=== PATIENT | female | born 1975 | race Caucasian/White ===

== ENCOUNTER 2024-02-01 00:31 | Day surgery (SDC) | payer OTHER, SELFPAY ==
[2024-01-23 13:48] VITALS: BMI 24.2
--- NOTE | 2024-01-23 14:03 | PC.NURSE ---
Report to the Outpatient Waiting Room, entrance under the green pavilion located off [facility], at time _1000AM on date _02/01/24 . Planned Procedure Time: _1200_NOON .? Time changes happen often and if your time is changed the preop area will call you the afternoon before. - You and your visitor will be asked to self-screen and do not enter if you have any COVID symptoms. Please call surgeon if you need to reschedule. - A mask is optional within the hospital at this time. Patients may have clear liquids (water, carbonated beverages, clear teas, apple juice) until 3 hours prior to surgery with a maximum of 20 ounces. - No food from midnight until time of surgery and no smoking. Take only the following medications with a SIP of water on the morning of surgery: ____VALIUM IF NEEDED, SERTRALINE DO NOT STOP ANY OF YOUR OTHER PRESCRIPTION MEDICATIONS PRIOR TO SURGERY EXCEPT THE FOLLOWING Medications to discontinue per physician NONE Date to take last dose NONE Please no make-up, nail thai, hairspray, perfume, deodorant, or body powder the day of surgery.? No jewelry (including any body piercings) or valuables the day of surgery, leave them at home.? Please take a shower or bath the night before, or the morning of, surgery with an antibacterial soap.? Wear comfortable, loose fitting clothing.? - Jewelry must be removed prior to entering the operating room.? Rings and piercings that are not removed may be cut off. - The hospital will not accept responsibility for valuables.? - Please leave all valuables, including medications, at home the day of surgery. If you are going home after surgery, a licensed class a regional drivers must drive you home.? - NO public transportation without another adult if you receive anesthesia. - We recommend that an adult stay with you for 24 hours following discharge. - We also recommend that you do not drive, make important decision, drink alcoholic beverages, or take any drugs that were not prescribed by your health care provider for at least 24 hours after your discharge time. Follow any additional instructions given to you from your surgeon. Telephone instructions given to _ADELITAH and asked if any additional questions and then verbalized understanding. Patient advised to call surgeon office or pre surgery nurse liaison [phone] if any additional questions.
--- NOTE | 2024-01-27 17:34 | P.HP_ITS ---
H&P: HPI History of Present Illness Date/Time: 01/27/24 17:34 Chief Complaint: TERESA Narrative: desires a sling for TERESA Review of Systems Review of Systems: All systems reviewed & are unremarkable except as noted in HPI and below [facility] Past Medical History Medical History Abnormal Pap smear of cervix Hx HANNA 1 and LGSIL 1995; 06/16/2011 colpo chronic cervicitis; 01/12/12 ascus neg hpv 06/20/2016 ascus-hpv Anxiety Miscarriage 02/05/02 Pain of left breast Screening mammogram, encounter for Surgical History Surgical History History of colposcopy with cervical biopsy 1995 colpo/bx--cyrosurgery 06/16/11 chronic cervicitis, squamous metaplasia colpo only/no bx History of dilation and curettage 05/25/99 hscope d&c/dx lscope--electrocautery of endometriotic implants--endometriosis-benign 02/08/21 hscope d&c/polypectomy--endometrial polyp w/hemorrhagic infarction 02/05/02 suction d&c--incomplete AB History of laparoscopy 05/25/99 hscope d&c/dx lscope--electrocautery of endometriotic implants--endometriosis-benign 07/01/03 lscope lysis endometriosis History of tonsillectomy Family History Family History Mother Hypertension Heart disease Father Lung cancer Social History Social History Smoking status: Never smoker Second hand tobacco smoke exposure: No Alcohol intake: current Drinks per week: 3 Substance use: never Substance use type: does not use Do You Feel Safe in your Home?: Yes Lack of Transportation: No Lack of Food: Never True Current Housing: I Have Housing Concerned About Future Housing: No Difficulty Paying Gas/Electric Bills: No Difficulty Paying for Meds: No Currently Unemployed: No Education: High School Diploma/GED Difficulty w/ Childcare or Family Care: No Living arrangements: with family Additional living arrangements comments: Occupation/Education: occupation Additional occupation/education comments: real estate Gender identity (if verbalized by the patient): Female Sexual Orientation (if Verbalized by the Patient): Straight or Heterosexual Spiritual care concerns: No Meds Home Medications and Allergies Home Medications Medication Instructions Recorded Confirmed Type loratadine 10 mg tablet 10 mg PO DAILY 10/20/21 01/23/24 History norethindrone 1 mg-ethinyl 1 tablet PO DAILY #140 tabs 05/15/23 01/23/24 Rx estradiol 10 mcg (24)-iron 10 mcg(2) tablet (Lo Loestrin Fe) sertraline 50 mg tablet 50 mg PO DAILY #90 tabs 05/15/23 01/23/24 Rx diazepam 5 mg tablet 5 mg PO BID PRN Anxiety 01/23/24 01/23/24 History Allergies Allergy/AdvReac Type Severity Reaction Status Date / Time Penicillins Allergy Mild Unknown Verified 05/15/23 10:42 Exam Narrative: + urethral mobility Assessment and Plan Assessment and plan (1) Stress incontinence: Code(s): N39.3 - Stress incontinence (female) (male) Status: Acute Assessment and Plan: urethral sling
--- NOTE | 2024-01-31 15:15 | WPDANESEPPF ---
Anes - Initial Pre Proc Eval Procedure: Operation Date: 02/01/24 11:15 Proposed Procedures p Urethral Sling - Ovidio Early MD Date/Time: 01/31/24 15:15 Surgeon: Ovidio Early MD Pre Op Diagnosis: stress incont Patient Data Age: 48 Gender: F Height: 1.73 m Weight: 72.2 kg Allergies Allergy/AdvReac Type Severity Reaction Status Date / Time Penicillins Allergy Mild Unknown Verified 05/15/23 10:42 Home Medications Medication Instructions Recorded Confirmed Type loratadine 10 mg tablet 10 mg PO DAILY 10/20/21 01/23/24 History norethindrone 1 mg-ethinyl 1 tablet PO DAILY #140 tabs 05/15/23 01/23/24 Rx estradiol 10 mcg (24)-iron 10 mcg(2) tablet (Lo Loestrin Fe) sertraline 50 mg tablet 50 mg PO DAILY #90 tabs 05/15/23 01/23/24 Rx diazepam 5 mg tablet 5 mg PO BID PRN Anxiety 01/23/24 01/23/24 History hydrocodone 5 mg-acetaminophen 325 1 tablet PO Q6H PRN pain #20 tabs 02/01/24 Rx mg tablet Patient hx anesthesia problems: none Family hx anesthesia problems: none Results Review: All pre-operative results and documents have been reviewed as part of the pre-operative evaluation. [facility] Past Medical History Medical History (Updated 01/31/24 @ 15:16 by Fredrick Foley DO) Abnormal Pap smear of cervix Hx HANNA 1 and LGSIL 1995; 06/16/2011 colpo chronic cervicitis; 01/12/12 ascus neg hpv 06/20/2016 ascus-hpv Anxiety Endometriosis Miscarriage 02/05/02 Pain of left breast Screening mammogram, encounter for Surgical History Surgical History History of colposcopy with cervical biopsy 1995 colpo/bx--cyrosurgery 06/16/11 chronic cervicitis, squamous metaplasia colpo only/no bx History of dilation and curettage 05/25/99 hscope d&c/dx lscope--electrocautery of endometriotic implants--endometriosis-benign 02/08/21 hscope d&c/polypectomy--endometrial polyp w/hemorrhagic infarction 02/05/02 suction d&c--incomplete AB History of laparoscopy 05/25/99 hscope d&c/dx lscope--electrocautery of endometriotic implants--endometriosis-benign 07/01/03 lscope lysis endometriosis History of tonsillectomy Family History Family History Mother Hypertension Heart disease Father Lung cancer Social History Social History Smoking status: Never smoker Second hand tobacco smoke exposure: No Alcohol intake: current Drinks per week: 3 Substance use: never Substance use type: does not use Do You Feel Safe in your Home?: Yes Lack of Transportation: No Lack of Food: Never True Current Housing: I Have Housing Concerned About Future Housing: No Difficulty Paying Gas/Electric Bills: No Difficulty Paying for Meds: No Currently Unemployed: No Education: High School Diploma/GED Difficulty w/ Childcare or Family Care: No Living arrangements: with family Additional living arrangements comments: Occupation/Education: occupation Additional occupation/education comments: real estate Gender identity (if verbalized by the patient): Female Sexual Orientation (if Verbalized by the Patient): Straight or Heterosexual Spiritual care concerns: No Anes - Eval Final PreProcedure Day of Procedure 01/31/24 15:15 Patient weight: normal Heart: regular rate and rhythm Lungs: clear to auscultation and normal air movement Airway: Mallampati scale class II Neurological: alert and oriented Last oral intake: >/= 8 hours ASA classification: II Emergent: no Anesthetic plan: proceed Anesthesia type and monitoring: general GIVS and standard monitoring Results Review: All pre-operative results and documents have been reviewed as part of the pre-operative evaluation. Informed Consent: The patient's anesthetic plan and its attendant risks and benefits were discussed with jayy
--- NOTE | 2024-02-01 04:22 | WPDHPUPDATE1 ---
History and Physical Update Update Date/Time: 02/01/24 04:22 History and Physical has been reviewed, including an updated exam of the patient. There are NO changes in the patient's condition. Risks, benefits, and alternatives have been discussed and questions answered. Patient agrees to proceed with procedure.
[2024-02-01 09:05] VITALS: BP 102/70; PULSE 76; RESP 16; TEMP 36.4; O2SAT 100; BMI 24.6
[2024-02-01] MEDS: LACTATED RINGERS 1,000 ML 30 ML IV CONT (09:30)
[2024-02-01 11:28] LABS: BEDSIDEPREGUCG Negative (Negative)
[2024-02-01 11:30] VITALS: BP 93/56; PULSE 64; O2SAT 99
--- NOTE | 2024-02-01 11:35 | W.PM.PROC2 ---
Procedure Note - Detailed Date of Procedure 02/01/24 Pre-op Diagnosis stress incontinence Post-op Diagnosis Same Procedure Performed mid urethral sling cystoscopy Surgeon Ovidio Early MD Anesthesia MAC and Local Indications This is a female with confirm stress urinary incontinence. She desires surgical correction. She understands the risks of bleeding, infection, injury to the urinary tract, vaginal mesh extrusion, urinary tract mesh erosion, obstructive voiding requiring a secondary procedure, hip and leg pain, dyspareunia, inability to improve overactive bladder symptoms. She agrees to proceed. Findings Uncomplicated urethral sling Description of Procedure She was correctly identified. Informed consent obtained. She was brought the operating room. She was given appropriate anesthesia. She was given appropriate perioperative antibiotics. A time-out performed. I marked out the site of the inner thigh incisions. I anesthetized the skin and made those incisions. I anesthetized the anterior vaginal wall over the mid urethra. I made a 1 cm incision. I dissected out laterally taking great care not to injure the urethra or the vaginal wall. I passed the helical trocars. First on the left. Then on the right. I did this from the thigh incision towards the vaginal incision. The sling was connected to the trocars and brought out through the thigh incision. I tensioned the sling appropriately. I cut and the plastic sheaths. I then closed the incision with 2 0 Vicryl. On cystoscopy there is no tumors or surgical artifact. There was no surgical artifact in the urethra. I cut the excess sling material. Close incisions with glue. She was awakened and transferred to the PACU in stable condition. Implants Urethral sling Estimated Blood Loss 20 Drains No Packing No Pathology None sent Complications No immediate complications Condition Stable Disposition PACU
--- NOTE | 2024-02-01 11:55 | SUR.PHASEII ---
patient urinated prior to D/C
[2024-02-01 12:00] VITALS: BP 101/62; PULSE 64
[2024-02-01 12:22] VITALS: BP 155/83; PULSE 70
== END 2024-02-01 12:25 | disposition home or self-care (01) ==
PROVIDERS: PCP Family Medicine; Visit Provider Urology
PROC: (CPT 57288; principal; 2024-02-01 11:15)
DX: N39.3 Stress incontinence (female) (male) (principal); F41.9 Anxiety disorder, unspecified; Z79.891 Long term (current) use of opiate analgesic; Z98.890 Other specified postprocedural states; Z80.1 Family history of malignant neoplasm of trachea, bronchus and lung; Z82.49 Family history of ischemic heart disease and other diseases of the circulatory system
CPT/HCPCS: 57288; C1771; J0690; J2003; J2250; J2405; J2704; J3010; J7120

== ENCOUNTER 2024-10-28 10:15 | Emergency (ER) | payer OTHER, SELFPAY ==
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
--- NOTE | ~2024-10-28 | CT_ITS ---
Noncontrast CT scan of the cervical spine Technique: Multiple contiguous axial [address] images of the cervical spine were obtained and rec onstructed in 2D sagittal and coronal planes on the acquisition scanner. Dose reduction technique was used on this scan by utilizing automated exposure control, adjustment of the mA and/or kV according to patient size. The dose-length product (DLP) was 373.05 mGy-cm. Clinical History: Pain Findings: No fractures or dislocations. Unremarkable visualized bony structures. The intervertebral disc spaces are preserved. No prevertebral soft tissue swelling. Impression: No fracture or subluxation of the cervical spine. Reviewed, dictated and finalized at location . Impression: No fracture or subluxation of the cervical spine.
[2024-10-28 10:15] VITALS: BP 127/69; PULSE 80; RESP 22; TEMP 36.9; O2SAT 100
[2024-10-28] MEDS: ONDANSETRON INJ 4 MG/2 ML VIAL IV PUSH (10:41)
[2024-10-28] MEDS: MORPHINE SULFATE (*CRX) 4 MG/ML INJ IV PUSH (10:41)
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
[2024-10-28 11:12] LABS: Estimated CRCL calculation 68 ml/min; Estimated Glomerular Filt Rate > 60
--- OUTSIDE RECORDS SUMMARY | 2024-10-28 12:02 | XMS_ITS | Clinical Summary ---
Author Organization [facility] Address [address] [place] [address] Care Team Providers Care Regional Clinical Director Name Role Phone Bahman Hernandez MD Primary Care Provider [phone] Allergies Active Allergy Reactions Criticality Noted Date Comments Penicillins Unknown 01/08/2012 Childhood allergy Medications LO LOESTRIN FE 1 MG-10 MCG / 10 MCG Tab 11/30/2022 Active sertraline (ZOLOFT) 50 MG tablet Take 2 tablets (100 mg total) by mouth daily. 05/15/2023 Active cholestyramine (QUESTRAN) 4 G packetIndicatio ns:Chronic RUQ pain Take 1 packet (4 g total) by mouth 2 (two) times daily with meals. 60 each 1 02/20/2024 Active loratadine (CLARITIN) 10 MG tabletIndicatio ns:Seasonal allergies Take 1 tablet (10 mg total) by mouth daily. 90 tablet 1 06/09/2024 Active azithromycin (ZITHROMAX) 250 MG tabletIndicatio ns:Non-recurren t acute serous otitis media of both ears,Bronchitis Take 2 tablets by mouth on day one then 1 daily for four days. 6 tablet 07/21/2024 Active Active Problems Problem Noted Date Diagnosed Date Right upper quadrant abdominal pain 07/19/2023 Macrocytosis without anemia 09/27/2020 BMI 24.0-24.9, adult 09/27/2020 Palpitations 08/16/2020 Chronic constipation 08/16/2020 Degenerative disc disease, lumbar 08/30/2015 Family history of diabetes mellitus 08/30/2015 Family history of heart disease 08/30/2015 Family history of hypertension 08/30/2015 Resolved Problems Problem Noted Date Diagnosed Date Resolved Date History of iron deficiency anemia 08/30/2015 08/15/2020 Vertigo 08/30/2015 08/15/2020 Encounters Date Type Department Care Team Description 09/10/2024 Results Follow-Up [facility] Internal [address] [address] Bahman Hernandez MD LIPID PANEL, COMPREHENSIVE METABOLIC PANEL, LIPASE, CBC W/DIFF AUTOMATED 09/09/2024 9:20 AM CDT Laboratory Only [address] [address] Bahman Hernandez MD 09/09/2024 8:40 AM CDT Office Visit [facility] Internal [address] [address] Bahman Hernandez MD Follow Up; Abdominal Pain (RUQ pain ) 09/09/2024 Travel 08/04/[address] [address] Merlyn Rodrigues PA Earache from Last 3 Months Immunizations Immunization Administration Dates Next Due Tdap (Adacel) 10/07/2017 Family History Medical History Relation Comments Heart Disease Father Lung Cancer Father Diabetes Mother Heart Disease Mother Breast Cancer Neg Hx Relation Status Comments Father Mother Alive Social History Tobacco Use Types Packs/Day Years Used Date Smoking Tobacco: Never Passive Smoke Exposure: Never Smokeless Tobacco: Never Tobacco Cessation:Counseling Given: No Alcohol Use Standard Drinks/Week Comments Yes 0 (1 standard drink = 0.6 oz pur e alcohol) occasionally PHQ-2 Answer Date Recorded Patient Health Questionnaire-2 Score 0 07/21/2024 Comments No Sex and Gender Information Value Date Recorded Sex Assigned at Female 09/09/2024 8:43 AM CDT Legal Sex Female 7:43 PM CDT Gender Identity Female 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 Sexual Orientation Not on file Last Filed Vital Signs Vital Sign Reading Time Taken Comments Blood Pressure 106/68 09/09/2024 8:42 AM CDT Pulse 75 09/09/2024 8:42 AM CDT Temperature 36.3 C (97.3 F) 09/09/2024 8:42 AM CDT Respiratory Rate 16 09/09/2024 8:42 AM CDT Oxygen Saturation 100% 09/09/2024 8:42 AM CDT Inhaled Oxygen Concentration - - Weight 76.7 kg (169 lb) 09/09/2024 8:42 AM CDT Height 172.7 cm (5' 8) 09/09/2024 8:42 AM CDT Body Mass Index 25.7 09/09/2024 8:42 AM CDT Plan of Treatment Health Maintenance Due Date Last Done Comments Cervical Cancer Screening Pap Smear (Age 30 to 64) Every 3 Years 1976 Hepatitis C 1994 Hepatitis B Vaccines (1 of 3 - 19+ 3-dose series) 09/20/1995 Cervical Cancer Screening Pap with HPV Testing (Age 30 to 64) Every 5 Years 2006 Cervical Cancer Screening with HPV 2006 Annual Physical 08/01/2022 08/01/2021 COVID-19 Vaccine ( - season) 2023 Mammogram Screening 07/22/2025 07/23/2023, 06/20/2022, 11/01/2020, Additional history exists DTaP, Tdap and Td Vaccines (2 - Td or Tdap) 10/08/2027 10/07/2017 Colorectal Cancer Screening Colonoscopy (10 Years) 08/07/2033 08/08/2023, 08/08/2023 Colorectal Cancer Screening FIT-DNA (3 Years) Discontinued 11/07/2021, 11/07/2021 PHQ-2 (Physician [place]) Completed 07/21/2024 Meningococcal B Vaccine Aged Out No l onger eligible based on patient's age to complete this topic Meningococcal Vaccine Aged Out No barry sandra eligible based on patient's age to complete this topic Pneumococcal Vaccine: Pediatrics (0 to 5 Years) and At-Risk Patients (6 to 49 Years) Aged Out No longer eligible based on patient's age to complete this topic RSV Immunizations Under 20 Months Aged Out No longer eligible based on patient's age to complete this topic Procedures Procedure Name Priority Date/Time Associated Diagnosis Comments COLLECTION VENOUS BLOOD VENIPUNCTURE Routine 09/09/2024 9:17 AM CDT Right upper quadrant abdominal pain CBC W/DIFF AUTOMATED Routine 09/09/2024 9:17 AM CDT Right upper quadrant abdominal pain LIPASE Routine 09/09/2024 9:17 AM CDT Right upper quadrant abdominal pain COMPREHENSIVE METABOLIC PANEL Routine 09/09/2024 9:17 AM CDT Right upper quadrant abdominal pain LIPID PANEL Routine 09/09/2024 9:17 AM CDT Right upper quadrant abdominal pain COLONOSCOPY Routine 08/08/2023 9:08 AM CDT MG SCREENING W KEYLA TOBY DIGI Routine 07/23/2023 9:51 AM CDT Encounter for screening mammogram for malignant neoplasm of breast COLOGUARD ([employer]) Routine 11/07/2021 10:30 AM CDT Screening for colon cancer from Last 3 Months or Most Recently Relevant to Health Maintenance Results * COMPREHENSIVE METABOLIC PANEL (09/09/2024 9:17 AM CDT) GLUCOSE 79 65 - 99 mg/dL [facility] [employer] [facility] Comment: Fasting reference interval BUN 15 7 - 25 mg/dL [facility] CREATININE S/P/B 0.99 0.50 - 0.99 mg/dL [facility] GFR ESTIMATE 71 > OR = 60 mL/min/1. 73m2 [facility] BUN CREATININE RATIO SEE NOTE: (calc) [facility] Comment: Not Reported: BUN and Creatinine are within reference range. SODIUM S/P/B 140 135 - 146 mmol/L [facility] POTASSIUM S/P/B 4.7 3.5 - 5.3 mmol/L [facility] CHLORIDE S/P/B 107 98 - 110 mmol/L [facility] CO2 26 20 - 32 mmol/L [facility] CALCIUM S/P/B 9.1 8.6 - 10.2 mg/dL [facility] TOTAL PROTEIN S/P/B 7.3 6.1 - 8.1 g/dL [facility] ALBUMIN S/P/B 4.5 3.6 - 5.1 g/dL [facility] GLOBULIN 2.8 1.9 - 3.7 g/dL (calc) [facility] ALBUMIN/GLOBULI N RATIO 1.6 1.0 - 2.5 (calc) [facility] [facility] BILIRUBIN TOTAL S/P/B 0.5 0.2 - 1.2 mg/dL [facility] ALKALINE PHOSPHATASE S/P/B 42 31 - 125 U/L [employer] [facility] AST 21 10 - 35 U/L [employer] [facility] ALT 12 6 - 29 U/L [employer] [facility] 09/09/2024 9:17 AM CDT 09/10/2024 5:26 AM CDT Narrative Resulting Agency Comment Performing Organization Information: Site ID: [place] Name: [facility][1][place] Address: [facility] [place] [address] Director: Yari Figueroa MD us Bahman Hernandez MD LABORATORY Final Resul t [facility] Z[facility] [id number] [place] [address] [place] [address] * LIPID PANEL (09/09/2024 9:17 AM CDT) CHOLESTEROL 163 <200 mg/dL [facility] HDL 88 > OR = 50 mg/dL [facility] TRIGLYCERIDES 58 <150 mg/dL [facility] LDL (CALCULATED) 62 mg/dL (calc) [facility] Comment: Reference range: <100 Desirable range <100 mg/dL for primary prevention; <70 mg/dL for patients with CHD or diabetic patients with > or = 2 CHD risk factors. LDL-C is now calculated using the Noreen calculation, which is a validated novel method providing better accuracy than the Friedewald equation in the estimation of LDL-C. Chepe MAC et al. RALEIGH. 2013;310(19): 1111-5075 (http://education.NLT SPINE.Modbook/faq/QHR657) CHOL/HDL RATIO 1.9 <5.0 (calc) [employer] [facility] NON HDL CHOLESTEROL 75 <130 mg/dL (calc) [employer] [facility] Comment: For patients with diabetes plus 1 major ASCVD risk factor, treating to a non-HDL-C goal of <100 mg/dL (LDL-C of <70 mg/dL) is considered a therapeutic option. 09/09/2024 9:17 AM CDT 09/10/2024 5:26 AM CDT Narrative Resulting Agency Comment Performing Organization Information: Site ID: PREET Name: Emily Wright Address: [address] [place] [address] Director: Yari Figueroa MD us Bahman Hernandez MD LABORATORY Final Resul t EMILY RAMIREZ [facility] [employer] [facility] [address] [place] [address], * (ABNORMAL) CBC W/DIFF AUTOMATED (09/09/2024 9:17 AM CDT) WBC 6.6 3.8 - 10.8 Thousand/ uL [employer] [facility] RBC 4.07 3.80 - 5.10 Million/u L [employer] [facility] HGB 13.7 11.7 - 15.5 g/dL [employer] HCT 41.8 35.0 - 45.0 % [facility] MCV 102.7(H) 80.0 - 100.0 fL [employer] [facility] MCH 33.7(H) 27.0 - 33.0 pg [facility] MCHC 32.8 32.0 - 36.0 g/dL [facility] Comment: For adults, a slight decrease in the calculated MCHC value (in the range of 30 to 32 g/dL) is most likely not clinically significant; however, it should be interpreted with caution in correlation with other red cell parameters and the patient's clinical condition. RDW 12.3 11.0 - 15.0 % [facility] [place] PLT 283 140 - 400 Thousand/ uL [facility] MPV 9.6 7.5 - 12.5 fL [facility] ABS. NEUTROPHILS 4,508 1,500 - 7,800 cells/uL [facility] [place] ABS. LYMPHOCYTES 1,459 850 - 3,900 cells/uL [facility] [place] ABS. MONOCYTES 396 200 - 950 cells/uL [facility] [place] ABS. EOSINOPHILS 178 15 - 500 cells/uL [facility] [place] ABS. BASOPHILS 59 0 - 200 cells/uL [facility] [place] SEG NEUTROPHILS 68.3 % [facility] [place] LYMPHOCYTES 22.1 % [facility] [place] MONOCYTES 6.0 % [facility] EOSINOPHILS 2.7 % [facility] [place] BASOPHILS 0.9 % [facility] 09/09/2024 9:17 AM CDT 09/10/2024 5:26 AM CDT Narrative Resulting Agency Comment Performing Organization Information: Site ID: [place] Name: [facility] Address: [address] [place] [address] Director: Yari Figueroa MD Bahman Hernandez MD LABORATORY Final Resul t [facility] [employer] [address] [address], * LIPASE (09/09/2024 9:17 AM CDT) LIPASE 28 7 - 60 U/L [employer] [facility] 09/09/2024 9:17 AM CDT 09/10/2024 5:26 AM CDT Narrative Resulting Agency Comment Performing Organization Information: Site ID: [place] Name: [facility] Address: [address] [place] [address] Director: Yari Figueroa MD Bahman Hernandez MD LABORATORY Final Resul t [employer] [facility] [employer] [address] [address], * MG SCREENING W KEYLA TOBY DIGI (07/23/2023 9:51 AM CDT) Anatomical Region Laterality Modality Breast Bilateral Mammography 07/27/2023 6:49 AM CDT Impressions 07/27/2023 6:52 AM CDT ===== IMPRESSION: ===== 1. Stable mammographic appearance with no new findings to suggest malignancy in either breast. Assessment: ACR BI-RADS 2 - BENIGN FINDING(S) Recommendation: 1:Routine Screening Bilateral Comments: Ordered By: JUVE VICENTE Interpreted By: Kwadwo Brand MD, 07/27/2023 6:49 AM Narrative 07/27/2023 6:52 AM CDT Examination: Digital bilateral screening mammogram with 3D Tomosynthesis Exam Date/Time: 07/23/2023 8:52 AM Reason For Exam: annual No prior breast procedures. No personal or family history of breast cancer. No current complaints. Comparison: Mammograms from 06/20/2022 11/01/2020 10/27/2019 Technique: Digital screening mammography of both breasts was performed in addition to 3-D Tomosynthesis technique. This study was read with the assistance of a computer-aided detection system. Tissue density: The breast tissue is heterogeneously dense, which may obscure small masses. Findings: Stable tiny benign rounded calcifications. Overall parenchymal pattern unchanged from prior studies. There is no new focal asymmetry, dominant mass lesion, area of skin thickening, or cluster of suspicious appearing calcifications in either breast to suggest malignancy. us Juve Vicente MD MAMMO Final Result * COLOGUARD ([employer] SCIENCE) (11/07/2021 10:30 AM CDT) COLOGUARD RESULT Negative Negative [employer] (CLIA #:[id number]) Comment: NEGATIVE TEST RESULT. A negative Cologuard result indicates a low likelihood that a colorectal cancer (CRC) or advanced adenoma (adenomatous polyps with more advanced pre-malignant features) is present. The chance that a person with a negative Cologuard test has a colorectal cancer is less than 1 in 1500 (negative predictive value >99.9%) or has an advanced adenoma is less than 5.3% (negative predictive value 94.7%). These data are based on a prospective cross-sectional study of 10,000 individuals at average risk for colorectal cancer who were screened with both Cologuard and colonoscopy. (Kevin Christine al, N Engl J Med 2014;370(14):4443-3910) The normal value (reference range) for this assay is negative. COLOGUARD RE-SCREENING RECOMMENDATION: Periodic colorectal cancer screening is an important part of preventive healthcare for asymptomatic individuals at average risk for colorectal cancer. Following a negative Cologuard result, the [place] Cancer Society and U.S. Multi-Society Task Force screening guidelines recommend a Cologuard re-screening interval of 3 years. References: [place] [employer] Society Guideline for Colorectal Cancer Screening: https://www.cancer.org/cancer/iwyht-yydmbm-picmah/cmyymgsas-itrjrjgev-updppak/ac s-rec ommendations.html.; Raul FLORES, Cathleen REDMOND, [employer], Colorectal Cancer Screening: Recommendations for Physicians and Patients from the U.S. Multi-Society Task Force on Colorectal Cancer Screening , Am J Gastroenterology 2017; 112:3087-3985. TEST DESCRIPTION: Composite algorithmic analysis of stool DNA-biomarkers with hemoglobin immunoassay. Quantitative values of individual biomarkers are not reportable and are not associated with individual biomarker result reference ranges. Cologuard is intended for colorectal cancer screening of adults of either sex, 45 years or older, who are at average-risk for colorectal cancer (CRC). Cologuard has been approved for use by the U.S. FDA. The performance of Cologuard was established in a cross sectional study of average-risk adults aged 50-84. Cologuard performance in patients ages 45 to 49 years was estimated by sub-group analysis of near-age groups. Colonoscopies performed for a positive result may find as the most clinically significant lesion: colorectal cancer [4.0%], advanced adenoma (including sessile serrated polyps greater than or equal to 1cm diameter) [20%] or non- advanced adenoma [31%]; or no colorectal neoplasia [45%]. These estimates are derived from a prospective cross-sectional screening study of 10,000 individuals at average risk for colorectal cancer who were screened with both Cologuard and colonoscopy. (Kevin Rivera, N Engl J Med 2014;370(14):5499-2863.) Cologuard may produce a false negative or false positive result (no colorectal cancer or precancerous polyp present at colonoscopy follow up). A negative Cologuard test result does not guarantee the absence of CRC or advanced adenoma (pre-cancer). The current Cologuard screening interval is every 3 years. ([place] Cancer Society and U.S. Multi-Society Task Force). Cologuard performance data in a 10,000 patient pivotal study using colonoscopy as the reference method can be accessed at the following location: www.[employer].Modbook/results. Additional description of the Cologuard test process, warnings and precautions can be found at www.cologuard.com. STOOL STOOL SPECIMEN / Unknown 11/07/2021 10:30 AM CDT 11/08/2021 5:30 PM CDT Karen Milton NP BODY FLUIDS AND STOOLS ORDERABLE S Final Result [employer] ([address]) [address] [place] [address], [employer] (CLIA #:[id number]) [address] [place] [address] from Last 3 Months or Most Recently Relevant to Health Maintenance Insurance [facility] Care Teams Regional Clinical Director Relationship Specialty [place] [address] [place] [address] PCP - General FAMILY PRACTICE 10/13/22
--- OUTSIDE RECORDS SUMMARY | 2024-10-28 12:02 | XMS_ITS | Encounter Summary ---
Author Organization [facility] Address [address] [place], [place] [id number] Care Team Providers Care Wind Technician Name Role Phone Bahman Hernandez MD Primary Care Provider [phone] Encounter Details Date Type Department Care Team (Latest Contact Info) Description 09/10/2024 Results Follow-Up [facility] Family & Internal Medicine [address] [address] [place] [id number] [place], [place] [id number] LIPID PANEL, COMPREHENSIVE METABOLIC PANEL, LIPASE, CBC W/DIFF AUTOMATED Social History Tobacco Use Types Packs/Day Years Used Date Smoking Tobacco: Never Passive Smoke Exposure: Never Smokeless Tobacco: Never Alcohol Use Standard Drinks/Week Comments Yes 0 (1 standard drink = 0.6 oz pur e alcohol) occasionally PHQ-2 Answer Date Recorded Patient Health Questionnaire-2 Score 0 07/21/2024 Comments No Sex and Gender Information Value Date Recorded Sex Assigned at Female 09/09/2024 8:43 AM CDT Legal Sex Female 7:43 PM CDT Gender Identity Female 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 Sexual Orientation Not on file documented as of this encounter Progress Notes * Bahman Hernandez MD - 09/10/2024 8:27 AM CDT Cbc shows no elevated wbc has normal lipase,lipids,renal and electrolytes documented in this encounter Plan of Treatment Not on file documented as of this encounter Visit Diagnoses Not on filedocumented in this encounter Additional Health Concerns Assessment Noted Time PHQ-9 Depression Total Score: 0 08/02/19 7:23 AM CDT documented as of this encounter Care Teams Wind Technician Relationship Specialty [place] [address] [place] [address] PCP - General FAMILY PRACTICE 01/26/22 documented as of this encounter
[2024-10-28 12:33] VITALS: BP 113/77; PULSE 67; RESP 18; O2SAT 100
[2024-10-28] MEDS: HYDROcodone/acetaminophen (*CRX) 5-325 MG TABLET 1 TAB PO (12:51)
[2024-10-28] MEDS: KETOROLAC 30 MG/ML VIAL (*BKC) IV PUSH (12:52)
== END 2024-10-28 13:19 | disposition home or self-care (01) ==
PROVIDERS: Emergency Provider Physician Assistant; PCP Family Medicine
DX: S20.212A Contusion of left front wall of thorax, initial encounter (principal); N80.9 Endometriosis, unspecified; F41.9 Anxiety disorder, unspecified; Z90.49 Acquired absence of other specified parts of digestive tract; Z79.899 Other long term (current) drug therapy; V49.40XA Driver injured in collision with unspecified motor vehicles in traffic accident, initial encounter
CPT/HCPCS: 70450; 71260; 72125; 72129; 72132; 74177; 96374; 96375; 99284; A9270; J1885; J2270; J2405; Q9967